=== PATIENT | female | born 1990 | race African-American/Black ===

== ENCOUNTER 2017-05-30 08:59 | Emergency (ER) | payer MEDICAID ==
[~2017-05-30] VITALS: Ht 165.1 cm; Wt 73.0 kg
[~2017-05-30 08:59] MED LIST: IBUP600 PO; PERI8.6T PO; PREN1CAP12 PO; PREN1CAP20 PO; [UNRECOGNIZED DRUG - CODE] PO
[2017-05-30 09:00] VITALS: BP 143/91; PULSE 58; RESP 16; TEMP 98.6; O2SAT 100
--- NOTE | 2017-05-30 09:19 | PD ---
HPI Chief Complaint: Oral / Dental Pain or Problem Time Seen by Provider: 09:10 Travel History International Travel<30 days: No Contact w/Intl Traveler<30days: No Traveled to known affect area: No History of Present Illness HPI 27-year-old female presents to the emergency department with lower left dental pain for 4-5 days. Patient states that she went to her primary care physician for this pain and they prescribed her hydrocodone 7.5/325. She's been unable to see a dentist. Patient states that her pain has not improved and she is concerned now that there is an infection. Patient states that when she takes the hydrocodone she feels some itching and a little nauseous and does not want to this medication anymore. Patient denies fever or chills. Patient states that she has some lower left jaw pain and occasionally a "funny taste" in her mouth. Patient has full range of motion of her jaw. Denies chronic medical issues or chronic medication use. Illicit drug use. PFSH Past Medical History Autoimmune Disease: No Blood Disorders: No Cancer: No Cardiovascular Problems: No Chemotherapy: No Diabetes: No Endocrine: No Immune Disorder: No Musculoskeletal: No Neurologic: No Psychiatric: No Reproductive: Yes Respiratory: No Radiation Therapy: No Thyroid Disease: No ?: Not : 2 Para: 1 Miscarriage: 0 : 0 Past Surgical History Abdominal Surgery: No AICD: No Appendectomy: Yes Arteriovenous Shunt: No Ear Surgery: No Endocrine Surgery: No Eye Surgery: No Genitourinary Surgery: No Gynecologic Surgery: No Insulin Pump: No Joint Replacement: No Oral Surgery: No Pacemaker: No Thoracic Surgery: No Other Surgery: Yes (right fallopian tube removed per pt) Social History Alcohol Use: No Tobacco Use: No Substance Use: No Allergies-Medications (Allergen,Severity, Reaction): Coded Allergies: No Known Allergies (Verified , 01/19/16) Reported Meds & Prescriptions Reported Meds & Active Scripts Active Penicillin V Potassium 500 Mg Tab 500 Mg PO Q8H 7 Days Magic Mouthwash Pediatric/Adult Liq (Lidocaine/Diphenhydr/Alum/Mg/Simeth) 60 Ml Susp 5 Ml SWISH-SPIT ACHS 7 Days Each 5mL contains: Diphenydramine 4.5mg, Viscous Lidocaine 2% 10mg, Maalox Advanced Regular Strength 2.7ml Duet Dha 400 25-1 & 400 mg ( W/Fe Polysacch Cmplx-) 1 Mis Mis 11 Cap PO DAILY Faith-Colace 8.6-50 mg (Sennosides-Docusate Sodium) 1 Tab Tab 2 Tab PO Q12H PRN Motrin 600 Mg Tab (Ibuprofen) 600 Mg Tab 600 Mg PO Q6H PRN Prenate Mini 18-0.6-0.4-350 mg ( W/O Vit A W/ Fe Carbo) 1 Cap Cap 1 Cap PO DAILY Prenate Dha 18-0.6-0.4-300 mg ( W/O A W/ Fe Asparto G) 1 Cap Cap 1 Cap PO DAILY Review of Systems Except as stated in HPI: all other systems reviewed are Neg Physical Exam Narrative GENERAL: Well-nourished, well-developed patient. SKIN: Focused skin assessment warm/dry. HEAD: Normocephalic. EYES: No scleral icterus. No injection or drainage. Mouth: Poor dentition, left lower molar with fracture and multiple dental caries. No evidence of abscess or and into the jaw. NECK: Supple, trachea midline. No JVD or lymphadenopathy. CARDIOVASCULAR: Regular rate and rhythm without murmurs, gallops, or rubs. RESPIRATORY: Breath sounds equal bilaterally. No accessory muscle use. GASTROINTESTINAL: Abdomen soft, non-tender, nondistended. MUSCULOSKELETAL: No cyanosis, or edema. BACK: Nontender without obvious deformity. No CVA tenderness. Data Data Last Documented VS Vital Signs Date Time Temp Pulse Resp B/P (MAP) Pulse Ox O2 Delivery O2 Flow Rate FiO2 05/30/17 09:31 05/30/17 09:00 98.6 58 16 100 Orders Orders Ed Discharge Order (05/30/17 09:22) [facility] Medical Decision Making Medical Screen Exam Complete: Yes Emergency Medical Condition: Yes Differential Diagnosis Left lower molar tooth infection, fracture, Gingivitis, abscess Narrative Course 27-year-old female presents to the emergency department with lower left dental pain for 4-5 days. Patient states that she went to her primary care physician for this pain and they prescribed her hydrocodone 7.5/325. She's been unable to see a dentist. Patient states that her pain has not improved and she is concerned now that there is an infection. Patient states that when she takes the hydrocodone she feels some itching and a little nauseous and does not want to this medication anymore. Patient denies fever or chills. Patient states that she has some lower left jaw pain and occasionally a "funny taste" in her mouth. Patient has full range of motion of her jaw. Denies chronic medical issues or chronic medication use. Illicit drug use. Vital signs stable Physical exam consistent with dental infection. Patient will be discharged with antibiotics and mouth rinse. Advised on care for her mouth and advised to follow-up with dentist as discussed. Follow-up with primary care physician regarding her medication as she has nausea and itching. Advised patient to return to the emergency department for worsening or persistent symptoms. Diagnosis Primary Impression: Dental infection Additional Impression: Tooth fracture Qualified Codes: S02.5XXA - Fracture of tooth (traumatic), initial encounter for closed fracture Referrals: Dentist Primary Care Physician Departure Forms: Tests/Procedures, Work Release Enter return to work date: Jun 02, 2017 Special Instructions: Patient may return before Friday if symptoms improve. Additional Instructions: Follow-up with primary care physician within 2-3 days. Follow-up with a dentist as soon as possible. Use mouth rinse as directed. Use medication as prescribed. Use Motrin for your pain per package instructions If your symptoms persist or worsen, return to the ER. Scripts Penicillin V Potassium (Penicillin V Potassium) 500 Mg Tab 500 MG PO Q8H for Infection for 7 Days, #21 TAB 0 Refills Prov: Frankie Millan MD 05/30/17 Wlyzscvjbqlzuxi-Rqkzztjeb-Iph-Alum-Simeth Liq (Magic Mouthwash Pediatric/Adult Liq) 60 Ml Susp 5 ML SWISH-SPIT ACHS for Mouth sores for 7 Days, #60 ML 0 Refills Each 5mL contains: Diphenydramine 4.5mg, Viscous Lidocaine 2% 10mg, Maalox Advanced Regular Strength 2.7ml Prov: Frankie Millan MD 05/30/17 Disposition: 01 DISCHARGE HOME Condition: Stable Sheyla Villa May 30, 2017 09:19
[2017-05-30] MEDS ORDERED: PENI500T PO (09:21)
[2017-05-30] MEDS ORDERED: MAGICPED SWISH-SPIT (09:21)
== END 2017-05-30 09:32 | disposition home or self-care (01) ==
LOC: NEPD 08:59
DX: S02.5XXA Fracture of tooth (traumatic), initial encounter for closed fracture (principal); K04.7 Periapical abscess without sinus; Z79.899 Other long term (current) drug therapy; X58.XXXA Exposure to other specified factors, initial encounter
CPT/HCPCS: 99284

== ENCOUNTER 2017-10-09 08:52 | Emergency (ER) | payer MEDICAID ==
[~2017-10-09 08:52] MED LIST changes: +MAGICPED SWISH-SPIT; +PENI500T PO
[2017-10-09 09:03] VITALS: BP 153/87; PULSE 62; RESP 20; TEMP 97.6; O2SAT 100
[2017-10-09] MEDS ORDERED: LIDOCAINE HCL 1% 20 ML VIAL ONE (11:29)
[2017-10-09] MEDS ORDERED: LIDOCAINE HCL 1% 50 ML VIAL XX ONE (11:30)
[2017-10-09] MEDS ORDERED: cefTRIAXone 250 MG VIAL IM ONE (11:30)
[2017-10-09] MEDS ORDERED: ZOFR4TAB PO (11:31)
[2017-10-09] MEDS ORDERED: DOXY100C PO (11:31)
[2017-10-09] MEDS ORDERED: METR-1 PO (11:31)
[2017-10-09] MEDS ORDERED: IBUP1TAB7 PO (11:31)
--- NOTE | 2017-10-09 11:32 | PD ---
HPI . Pelvic pain Chief Complaint: Abdominal Pain Time Seen by Provider: 10:47 Travel History International Travel<30 days: No Contact w/Intl Traveler<30days: No Traveled to known affect area: No History of Present Illness HPI Patient presents with a chief complaint of pelvic pain. Onset was "a few days ago." She states that her pain is similar to pain that she had previously when her fallopian tubes were inflamed. She states that she is currently on her menstrual cycle and that it is normal. She states that she has not been recently sexually active since she cannot comment on dyspareunia. She denies any vaginal discharge. She denies any urinary tract symptoms. She does admit to some occasional nausea and vomiting the past couple of days which she believes are secondary to her pain. She states that she has tried to take an nvba-sge-chmswij pain medication but has vomited it. Her symptoms are mild. Her symptoms are exacerbated by standing and walking and relieved by curling up in a ball. PFSH Past Medical History Medical History: Denies Significant Hx Autoimmune Disease: No Blood Disorders: No Cancer: No Cardiovascular Problems: No Chemotherapy: No Diabetes: No Endocrine: No Immune Disorder: No Musculoskeletal: No Neurologic: No Psychiatric: No Reproductive: Yes Respiratory: No Radiation Therapy: No Thyroid Disease: No Influenza Vaccination: No ?: Not : 2 Para: 1 Miscarriage: 0 : 0 Tubal Ligation: Yes (1 FALLOPIAN TUBE REMOVED) Past Surgical History Abdominal Surgery: No AICD: No Appendectomy: Yes Arteriovenous Shunt: No Ear Surgery: No Endocrine Surgery: No Eye Surgery: No Genitourinary Surgery: No Gynecologic Surgery: No Insulin Pump: No Joint Replacement: No Oral Surgery: No Pacemaker: No Thoracic Surgery: No Other Surgery: Yes (right fallopian tube removed per pt) Social History Alcohol Use: No Tobacco Use: Yes (1/2 PPD) Substance Use: No Allergies-Medications (Allergen,Severity, Reaction): Coded Allergies: No Known Allergies (Verified , 01/19/16) Reported Meds & Prescriptions Reported Meds & Active Scripts Active Penicillin V Potassium 500 Mg Tab 500 Mg PO Q8H 7 Days Magic Mouthwash Pediatric/Adult Liq (Lidocaine/Diphenhydr/Alum/Mg/Simeth) 60 Ml Susp 5 Ml SWISH-SPIT ACHS 7 Days Each 5mL contains: Diphenydramine 4.5mg, Viscous Lidocaine 2% 10mg, Maalox Advanced Regular Strength 2.7ml Duet Dha 400 25-1 & 400 mg ( W/Fe Polysacch Cmplx-) 1 Mis Mis 11 Cap PO DAILY Faith-Colace 8.6-50 mg (Sennosides-Docusate Sodium) 1 Tab Tab 2 Tab PO Q12H PRN Motrin 600 Mg Tab (Ibuprofen) 600 Mg Tab 600 Mg PO Q6H PRN Prenate Mini 18-0.6-0.4-350 mg ( W/O Vit A W/ Fe Carbo) 1 Cap Cap 1 Cap PO DAILY Prenate Dha 18-0.6-0.4-300 mg ( W/O A W/ Fe Asparto G) 1 Cap Cap 1 Cap PO DAILY Review of Systems Except as stated in HPI: all other systems reviewed are Neg Physical Exam Narrative GENERAL: Awake and alert and in no acute distress. SKIN: warm/dry. HEAD: Normocephalic. Atraumatic. EYES: Pupils equal and round. No scleral icterus. No injection or drainage. ENT: No nasal bleeding or discharge. Mucous membranes pink and moist. NECK: Trachea midline. Full range of motion without pain.. CARDIOVASCULAR: Regular rate and rhythm. RESPIRATORY: No accessory muscle use. Clear to auscultation. Breath sounds equal bilaterally. GASTROINTESTINAL: Abdomen soft. Suprapubic tenderness. Bowel sounds present. Nondistended. : Normal female. She has some blood in the vaginal vault compatible with a normal menstrual cycle. She has positive cervical motion tenderness and bilateral adnexal tenderness. She almost has a positive chandelier sign. She scooted about a foot up the bed when I did the bimanual. MUSCULOSKELETAL: No obvious deformities. NEUROLOGICAL: Awake and alert. No obvious cranial nerve deficits. Motor grossly within normal limits. Normal speech. PSYCHIATRIC: Appropriate mood and affect; insight and judgment normal. Data Data Last Documented VS Vital Signs Date Time Temp Pulse Resp B/P (MAP) Pulse Ox O2 Delivery O2 Flow Rate FiO2 10/09/17 09:03 97.6 62 20 153/87 (109) 100 Orders Orders Gc And Chlamydia Pcr (10/09/17 10:47) Wet Prep Profile (10/09/17 10:47) Urinalysis - C+S If Indicated (10/09/17 10:47) Ed Urine Pregnancytest Poc (10/09/17 10:47) Ceftriaxone Inj (Rocephin Inj) (10/09/17 11:30) Lidocaine 1% Inj (50 Ml) (Xylocaine 1% I (10/09/17 11:30) Labs Laboratory Tests Test 10/09/17 11:20 [facility] Medical Decision Making Medical Screen Exam Complete: Yes Emergency Medical Condition: Yes Differential Diagnosis Differential diagnosis of pelvic pain includes but is not limited to UTI, PID, ectopic , spontaneous AB, constipation, viral illness Narrative Course This patient presents with a chief complaint of pelvic pain. She states that it feels like previous inflammation of her fallopian tubes. Her physical exam is compatible with PID. She will be treated here with Rocephin and will be discharged with prescriptions for doxycycline and Flagyl. Her urine test is negative. Diagnosis Primary Impression: Pelvic inflammatory disease Patient Instructions: General Instructions, Pelvic Inflammatory Disease (DC) Med/Other Pt SpecificInfo: Prescription(s) given Scripts Ondansetron (Zofran) 4 Mg Tab 4 MG PO Q6HR Y for NAUSEA OR VOMITING, #6 TAB 0 Refills Prov: Frida Maynard MD 10/09/17 Ibuprofen (Ibuprofen) 800 Mg Tab 800 MG PO Q8H Y for Pain/Inflammation, #60 TAB 0 Refills Prov: Frida Maynard MD 10/09/17 Metronidazole (Flagyl) 500 Mg Tab 500 MG PO BID for Infection for 7 Days, #14 TAB 0 Refills Prov: Frida Maynard MD 10/09/17 Doxycycline Hyclate (Doxycycline Hyclate) 100 Mg Cap 100 MG PO BID for Infection, #20 CAP 0 Refills Prov: Frida Maynard MD 10/09/17 Disposition: 01 DISCHARGE HOME Condition: Stable Frida Maynard MD Oct 09, 2017 11:32
[2017-10-09 11:34] LABS: AMORPHOUS SEDIMENT, URINE MOD; BILIRUBIN, URINE NEG (NEG); BLOOD, URINE MOD (NEG); GLUCOSE,URINE NEG (NEG); KETONE, URINE NEG (NEG); MUCUS URINE MANY /lpf (OCC); NITRITE,URINE NEG (NEG); PH, URINE 6.5 (5.0-8.5); SQUAMOUS EPITHELIAL CELL URINE 5 /hpf (0-5); URINE COLOR YELLOW (YELLW/STRAW); URINE LEUKOCYTE ESTERASE NEG (NEG)
== END 2017-10-09 12:06 | disposition home or self-care (01) ==
LOC: NEPD 08:52
DX: N73.9 Female pelvic inflammatory disease, unspecified (principal); F17.200 Nicotine dependence, unspecified, uncomplicated
CPT/HCPCS: 81001; 84703; 87210; 87491; 87591; 96372; 99283; J0696